=== PATIENT | male | born 1975 | race Caucasian/White ===

== ENCOUNTER 2018-05-05 08:53 | Emergency (ER) ==
[2018-05-05 09:25] VITALS: BP 155/95; TEMP 98.3; BMI 36.9
--- NOTE | 2018-05-05 09:25 | ED.PDOC ---
General ED Provider: Dr. HÉCTOR ENRIQUEZ Chief Complaint: Abdominal Pain Stated Complaint: ABDOMINAL PAIN Time Seen by Physician: 09:00 (SEEN WITH THE ENTIRE NURSING STAFF, ROLO PEREZ ROBBIN) Mode of Arrival: Walk-In Information Source: Patient, Family Exam Limitations: No limitations Referred to ED by: Other (SEEN WITH HIS FAMILY IN THE ROOM AT ALL TIMES DENIED INJURY) Nursing and Triage Documentation Reviewed and Agree: Yes (THIS IS A CHRONIC PAIN ISSUE) Reviewed sepsis parameters & appropriate labs ordered?: Yes System Inflammatory Response Syndrome: Not Applicable Sepsis Protocol: For patient's 13 years and over: Temp is 96.8 and below OR 101 and greater Pulse >90 BPM Resp >20/minute Acutely Altered Mental Status Are patient's symptoms suggestive of a new infection, such as: -Pneumonia -Skin, Soft Tissue -Endocarditis -UTI -Bone, Joint Infection -Implantable Device -Acute Abdominal Infection -Wound Infection -Meningitis -Blood Stream Catheter Infection -Unknown GI Complaint Exam - Abdominal Pain Complaint/Exam Onset: Gradual Duration: 1 DAY Symptoms Are: Still present Timing: Constant Initial Severity: Moderate Current Severity: Moderate Location of Pain: Diffuse (CHRONIC PAIN WORSE NOW ) Character: Reports: Aching Aggravating: Reports: None Alleviating: Reports: None Associated Signs and Symptoms: Denies: Diaphoresis, Fever, Cough, Chest pain, Dizziness, Back pain, Constipation, Blood in stool, Dysuria, Urinary frequency, Decreased urine output, Decreased appetite, Discharge, Nausea, Vomiting, Diarrhea, Decreased activity Related History: Reports: Similar episode (X1 YEAR) AAA Risk Factors: Reports: None Cardiac Risk Factors: Reports: None Testicular Torsion Risk Factors: Reports: None Surgical Obstruction Risk Factors: Reports: None Related Surgical History: Reports: None Abdominal Findings: Present: None Differential Diagnoses: Appendicitis, Bowel Obstruction, Constipation, Gastroenteritis, Hepatitis, Pancreatitis Review of Systems - Review Of Systems Constitutional: Reports: No symptoms Eyes: Reports: No symptoms Ears, Nose, Mouth, Throat: Reports: No symptoms Respiratory: Reports: No symptoms Cardiac: Reports: No symptoms GI: Reports: Abdominal pain : Reports: No symptoms Musculoskeletal: Reports: No symptoms Skin: Reports: No symptoms Neurological: Reports: No symptoms Endocrine: Reports: No symptoms Hematologic/Lymphatic: Reports: No symptoms All Other Systems: Reviewed and Negative Past Medical History - Past Medical History Previously Healthy: Yes Endocrine: Reports: None Cardiovascular: Reports: None Respiratory: Reports: None Hematological: Reports: None Gastrointestinal: Reports: None Genitourinary: Reports: None Neuro/Psych: Reports: Anxiety, Depression, Bipolar Disorder Musculoskeletal: Reports: None Cancer: Reports: None - Surgical History General Surgical History: Reports: Unknown (LUNG RESECTION) - Family History Family History: Reports: None - Social History Smoking Status: Current every day smoker, Light tobacco smoker Hx Substance Use: No Alcohol Screening: Occasionally Physical Exam - Physical Exam Appearance: Well-appearing, No pain distress, Well-nourished Eyes: YEIMY, EOMI, Conjunctiva clear ENT: Ears normal, Nose normal, Oropharynx normal Respiratory: Airway patent, Breath sounds clear, Breath sounds equal, Respirations nonlabored Cardiovascular: RRR, Pulses normal, No rub, No murmur GI/: Soft, Nontender, No masses, Bowel sounds normal, No Organomegaly Musculoskeletal: Normal strength, ROM intact, No edema, No calf tenderness Skin: Warm, Dry, Normal color Neurological: Sensation intact, Motor intact, Reflexes intact, Cranial nerves intact, Alert, Oriented Psychiatric: Affect appropriate, Mood appropriate Critical Care Note - Critical Care Note Total Time (mins): 0 Course - Course Orders, Labs, Meds: Orders Category Date Time Status AMYLASE Stat LAB 05/05/18 09:02 Ordered CBC W/ AUTO DIFF Stat LAB 05/05/18 09:02 Ordered COMPREHENSIVE METABOLIC PANEL Stat LAB 05/05/18 09:02 Ordered LIPASE Stat LAB 05/05/18 09:02 Ordered URINALYSIS C & S IF INDICATED Stat LAB 05/05/18 09:[address] ABDOMEN/PELVIS WO CONTRAST Stat RADS 05/05/18 09:02 Ordered Vital Signs: Temp Pulse Resp BP Pulse Ox 05/05/18 08:53 98.3 F 96 H 18 155/95 H 98 Departure - Departure Time of Disposition: 09:26 (WITH THE ED MANGER AND SEVERAL NURSES I SAW THE PT , PT REFUSING BLOOD WORK I EXPLAINED THAT WE WILL DO ALL WE CAN AND IF WE FIND AN EMERGENCY CONDITION WE HAVE TO TRANSFER HIM PT UNHAPPY ABOUT HIS CARE FOR THE PAST 1 YEAR DEMANDING ASNWERES WHICH I EXPLAINED I HAVE TO DO FULL STUDY TO GET AN INSIGHT INTO HIS CONDITION BUT HE HAS TO AGREE WITH THE TESTING ,PT KEPT REFUSING THE BLOOD WORK AND IMAGING AND A TORADOL INJECTION. PT UPON LEAVING STATED HE HAD RECORDED THE COVERSTATION BETWEEN ME AND NURSING STAFF AND WILL REPORT TO MY SUPEIORS.) Disposition: AMA Discharge Problem: Abdominal pain Instructions: Abdominal Pain (ED) Condition: Good Pt referred to PMD for follow-up: Yes IPMP verified?: No Allergies/Adverse Reactions: Allergies No Known Allergies Allergy (Verified 05/05/18 08:59) Home Medications: Ambulatory Orders Albuterol Sulfate 0.083% Neb [Albuterol 0.083% Neb] 1 vial NEB BID 05/05/18 Tizanidine HCl [Zanaflex] 4 mg PO BID 05/05/18
== END 2018-05-05 09:25 | disposition left against medical advice (07) ==
LOC: ED 08:53
DX: R10.84 Generalized abdominal pain (principal); G89.29 Other chronic pain; F17.210 Nicotine dependence, cigarettes, uncomplicated
CPT/HCPCS: 99284